=== PATIENT | male | born 1990 | race Caucasian/White ===

== ENCOUNTER 2017-08-20 16:52 | Emergency (ER) | payer OTHER ==
[~2017-08-20] VITALS: Ht 175.3 cm; Wt 84.1 kg
[2017-08-20 16:55] VITALS: BP 147/88; TEMP 100.4
[2017-08-20] MEDS ORDERED: TYLENOL 500MG500 MG PO (17:32)
[2017-08-20 18:25] VITALS: PULSE 77
[2017-08-21] MEDS ORDERED: NORCOELIX PO (07:06)
== END 2017-08-20 18:26 | disposition home or self-care (01) ==
LOC: COL.ER 16:52
DX: J02.0 Streptococcal pharyngitis (principal); Z98.890 Other specified postprocedural states
CPT/HCPCS: J0561

== ENCOUNTER 2017-08-21 06:40 | Emergency (ER) | payer OTHER ==
[~2017-08-21] VITALS: Ht 175.3 cm; Wt 84.1 kg
[~2017-08-21 06:40] MED LIST: TYLENOL 500MG500 MG PO
[2017-08-21 06:42] VITALS: BP 168/103; TEMP 100.3
[2017-08-21] MEDS ORDERED: NORCOELIX PO (07:06)
[2017-08-21 07:20] VITALS: PULSE 115
== END 2017-08-21 07:25 | disposition home or self-care (01) ==
LOC: COL.ER 06:40
DX: J02.0 Streptococcal pharyngitis (principal)
CPT/HCPCS: J1885; J8540